=== PATIENT | male | born 1965 | race American Indian/Alaskan Native ===

== ENCOUNTER 2022-02-21 10:27 | Outpatient (CLI) | payer OTHER ==
--- NOTE | 2022-02-21 11:10 | XRay Report ---
Right shoulder 3 views INDICATION: Shoulder pain FINDINGS: Glenohumeral joint and AC joint appear normal. Clavicle appears normal. Scapula is unremark able IMPRESSION: No acute findings. Signer Name: Andrés Rodriguez MD Signed: 02/21/2022 11:06 AM Workstation Name: [id number]
--- NOTE | 2022-02-21 11:12 | XRay Report ---
Left ankle 3 views INDICATION: Ankle pain FINDINGS: Alignment appears normal. Talar dome appears intact. No displaced fracture is seen. Calcane al spurring is noted. IMPRESSION: Degenerative change. No acute findings. Signer Name: Andrés Rodriguez MD Signed: 02/21/2022 11:08 AM Workstation Name: [id number]
== END 2022-02-21 10:28 | disposition home or self-care (01) ==
LOC: XRAY 10:27
PROVIDERS: ATTEND Internal Medicine
DX: M19.072 Primary osteoarthritis, left ankle and foot (principal); M77.32 Calcaneal spur, left foot; M25.511 Pain in right shoulder